=== PATIENT | male | born 1985 | race Caucasian/White ===

== ENCOUNTER 2016-09-05 14:03 | Emergency (ER) | payer OTHER ==
[2016-09-05 14:14] VITALS: BP 146/86
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
--- NOTE | 2016-09-06 09:26 | CR ---
EXAM DATE: 09/05/16 PATIENT'S AGE: 31 Patient: DC PADRON Facility: [place], [place] Site . Site : 1985 Study: XRay Hip Left [id number]/31/2017 4:58:47 PM Ordering Physician: Doctor Griffiths Final Report: INDICATION: hip pain, hx femoral head fx TECHNIQUE: Two views of the left hip. COMPARISON: None FINDINGS: Bones: Postsurgical changes along the left femoral neck and left acetabulum with no evidence of hardware complication. Degenerative changes of the left hip joint. No acute bony abnormality. . Soft tissues: Unremarkable. IMPRESSION: No acute bony abnormality or evidence of hardware complication. Dictated by Marco A Lee MD @ 09/05/2016 5:27:40 PM Dictated by: Marco A Lee MD @ 09/05/2016 17:44:31 (Electronic Signature) Report Signed by Proxy. MTDOralia
== END 2016-09-05 18:25 | disposition home or self-care (01) ==
LOC: MW.ED 14:03
DX: M25.552 Pain in left hip (principal); K21.9 Gastro-esophageal reflux disease without esophagitis; F17.210 Nicotine dependence, cigarettes, uncomplicated; Z88.6 Allergy status to analgesic agent; Z79.899 Other long term (current) drug therapy
CPT/HCPCS: 73502-26-LT; 73502-LT; 99282; 99283

== ENCOUNTER 2017-08-12 14:32 | Emergency (ER) | payer OTHER ==
--- NOTE | 2017-08-12 14:51 | EDM.PDOC ---
ED HPI GENERAL MEDICAL PROBLEM - General Chief Complaint: Lower Extremity Injury/Pain Stated Complaint: PAIN CALF Time Seen by Provider: 08/12/17 14:33 Source of Information: Reports: Patient History Limitations: Reports: No Limitations - History of Present Illness INITIAL COMMENTS - FREE TEXT/NARRATIVE: HISTORY AND PHYSICAL: History of present illness: Patient is a 32-year-old male who presents to the emergency room with left posterior calf pain which started axillary 2-3 days ago. He is concerned as last month he did have a hip replacement and his orthopedic provider wanted him to be evaluated for a blood clot. He denies any recent travel, HRT, or injury. Has not had any localized area of redness or swelling. Review of systems: As per history of present illness and below otherwise all systems reviewed and negative. Past medical history: As per history of present illness and as reviewed below otherwise noncontributory. Surgical history: As per history of present illness and as reviewed below otherwise noncontributory. Social history: No reported history of drug or alcohol abuse. Family history: As per history of present illness and as reviewed below otherwise noncontributory. Physical exam: General: Well-developed and well-nourished 32-year-old male. Alert and oriented. Nontoxic appearing and in no acute distress. HEENT: Atraumatic, normocephalic, pupils equal and reactive bilaterally, negative for conjunctival pallor or scleral icterus, mucous membranes moist, throat clear, neck supple, nontender, trachea midline. No drooling or trismus noted. No meningeal signs Lungs: Clear to auscultation, breath sounds equal bilaterally, chest nontender. Heart: S1S2, regular rate and rhythm without overt murmur Abdomen: Soft, nondistended, nontender. Negative for masses or hepatosplenomegaly. Negative for costovertebral tenderness. Pelvis: Stable nontender. Genitourinary: Deferred. Rectal: Deferred. Skin: Intact, warm, dry. No lesions or rashes noted. Extremities: Atraumatic, moves all extremities per self without difficulty or deficits, negative for cords or calf pain. Neurovascular unremarkable. Neuro: Awake, alert, oriented. Cranial nerves II through XII unremarkable. Cerebellum unremarkable. Motor and sensory unremarkable throughout. Exam nonfocal. Notes: The skin itself shows no evidence of localized swelling or erythema. He does not have any pain in the calf when he has flexion and dorsiflexion, negative Homans sign. Due to his concern I will do an ultrasound. He denies any injury or trauma therefore an x-ray is not needed at this time. Venous ultrasound shows no evidence of a DVT. This information was shared with the patient. Likely this is the musculature in nature. I did offer him some pain medication which she declines. He states he does have pain medicine available from his recent surgery. Supportive care measures were reviewed and discussed. He is agreeable to plan of care. Denies any further questions or concerns at this time. Diagnostics: Venous ultrasound Therapeutics: [] Impression: Left lower extremity pain Plan: 1. Rest, ice, elevate the affected extremity. After 24-48 hours you may apply gentle heat as needed. Gentle stretching. 2. Tylenol and/or ibuprofen as needed for pain management. Continue to use your walking cane for comfort purposes. 3. Follow-up with your primary care provider in the next 1-2 days. Return to the ED as needed and as discussed. Definitive disposition and diagnosis as appropriate pending reevaluation and review of above. Duration: Day(s): left calf Pain Score (Numeric/FACES): 5 - Related Data Allergies Allergy/AdvReac Type Severity Reaction Status Date / Time celecoxib [From Celebrex] Allergy Hives Verified 08/12/17 14:40 nickel Allergy Rash Verified 09/05/16 14:10 oxycodone [Oxycodone] Allergy Itching Verified 09/05/16 14:10 Home Meds: Home Meds Aspirin 325 mg PO ASDIRECTED PRN 08/12/17 [History] Ibuprofen [Advil] 200 mg PO ASDIRECTED PRN 08/12/17 [History] Past Medical History - Past Health History Medical/Surgical History: Denies Medical/Surgical History Other Respiratory History: states has smoked 1ppd x15 years Gastrointestinal History: Reports: GERD, Other (See Below) Other Gastrointestinal History: states has difficulty swalowing Musculoskeletal History: Reports: Fracture - Past Surgical History HEENT Surgical History: Reports: None Cardiovascular Surgical History: Reports: None Male Surgical History: Reports: None Endocrine Surgical History: Reports: None Neurological Surgical History: Reports: None Musculoskeletal Surgical History: Reports: Other (See Below) Dermatological Surgical History: Reports: None Social & Family History - Caffeine Use Caffeine Use: Reports: Energy Drinks Review of Systems - Review of Systems Review Of Systems: ROS reveals no pertinent complaints other than HPI. ED EXAM, GENERAL - Physical Exam Exam: See Below (See dictation) Course - Vital Signs Last Recorded V/S: Last Vital Signs Temp 97.7 F 08/12/17 14:41 Pulse 89 08/12/17 14:41 Resp 18 08/12/17 14:41 BP 136/92 H 08/12/17 14:41 Pulse Ox 98 08/12/17 14:41 - Orders/Labs/Meds Orders: Active Orders 24 hr Category Date Time Status Venous Doppler Lwr Ext Lt [US] Stat Exams 08/12/17 14:55 Taken Departure - Departure Time of Disposition: 16:09 Disposition: Home, Self-Care 01 Clinical Impression: Left leg pain - Discharge Information Instructions: Leg Cramps Referrals: PCP,None [Primary Care Provider] - Forms: ED Department Discharge Additional Instructions: The following information is given to patients seen in the emergency department who are being discharged to home. This information is to outline your options for follow-up care. We provide all patients seen in our emergency department with a follow-up referral. The need for follow-up, as well as the timing and circumstances, are variable depending upon the specifics of your emergency department visit. If you don't have a primary care physician on staff, we will provide you with a referral. We always advise you to contact your personal physician following an emergency department visit to inform them of the circumstance of the visit and for follow-up with them and/or the need for any referrals to a consulting specialist. The emergency department will also refer you to a specialist when appropriate. This referral assures that you have the opportunity for follow-up care with a specialist. All of these measure are taken in an effort to provide you with optimal care, which includes your follow-up. Under all circumstances we always encourage you to contact your private physician who remains a resource for coordinating your care. When calling for follow-up care, please make the office aware that this follow-up is from your recent emergency room visit. If for any reason you are refused follow-up, please contact the [facility] Emergency Department at and asked to speak to the emergency department charge nurse. [facility] [address] [place] [id number] 1. Rest, ice, elevate the affected extremity. After 24-48 hours you may apply gentle heat as needed. Gentle stretching. 2. Tylenol and/or ibuprofen as needed for pain management. Continue to use your walking cane for comfort purposes. 3. Follow-up with your primary care provider in the next 1-2 days. Return to the ED as needed and as discussed. - My Orders Last 24 Hours: My Active Orders 08/12/17 14:55 Venous Doppler Lwr Ext Lt [US] Stat - Assessment/Plan Last 24 Hours: My Active Orders 08/12/17 14:55 Venous Doppler Lwr Ext Lt [US] Stat
[2017-08-12 16:21] VITALS: BP 120/75
--- NOTE | 2017-08-14 19:15 | US ---
EXAM DATE: 08/12/17 PATIENT'S AGE: 32 Patient: DC PADRNO Facility: [place], [place] Site . Site : 1985 Study: US Extremity Venous [id number]/7/[id number] 3:39:39 PM Ordering Physician: Doctor Griffiths Final Report: INDICATION: Left calf pain TECHNIQUE: A compression venous ultrasound exam was performed of the left lower extremity using weeks-scale imaging, color Doppler and spectral Doppler analysis. FINDINGS: Sonographic imaging of the left lower extremity demonstrates normal compressibility and color Doppler venous blood flow within the common femoral vein, deep femoral vein, and the proximal greater saphenous vein. Within the thigh, the femoral vein is patent and compressible. At a lower level, the popliteal and posterior tibial veins also show normal compressibility and color Doppler venous blood flow. Limited imaging of the contralateral groin demonstrates a normal spectral waveform and color Doppler venous blood flow within the right common femoral vein. IMPRESSION: No evidence of deep vein thrombosis within the left lower extremity. Dictated by Nikole Quiroz MD @ Aug 12 2017 3:59PM (Electronic Signature) Report Signed by Proxy. ADRIANA
== END 2017-08-12 16:20 | disposition home or self-care (01) ==
LOC: MW.ED 14:32
DX: M79.605 Pain in left leg (principal); Z88.8 Allergy status to other drugs, medicaments and biological substances; Z88.5 Allergy status to narcotic agent; Z91.048 Other nonmedicinal substance allergy status
CPT/HCPCS: 93971-26-LT; 93971-LT; 99283; 99283-25

== ENCOUNTER 2022-09-09 10:03 | Day surgery (SDC) | payer OTHER ==
[~2022-09-09 10:03] MED LIST: Lactated Ringers 1,000 ML IV SCH
[2022-09-09] MEDS ORDERED: Propofol 200 MG/20 ML SDV ONE ×3 (10:53→11:32)
[2022-09-09] MEDS ORDERED: Lidocaine 2% 5 ML SDV ONE (10:53)
[2022-09-09] MEDS ORDERED: Lactated Ringers 1,000 ML IV SCH (12:00)
[2022-09-09 12:13] VITALS: BP 107/76; PULSE 66
== END 2022-09-09 12:15 | disposition home or self-care (01) ==
LOC: MW.SDS 10:03
PROVIDERS: ATTEND Surgery
DX: D12.5 Benign neoplasm of sigmoid colon (principal); K57.30 Diverticulosis of large intestine without perforation or abscess without bleeding; K62.1 Rectal polyp; K31.89 Other diseases of stomach and duodenum; K21.9 Gastro-esophageal reflux disease without esophagitis; K29.50 Unspecified chronic gastritis without bleeding; F17.210 Nicotine dependence, cigarettes, uncomplicated; M87.059 Idiopathic aseptic necrosis of unspecified femur; D64.9 Anemia, unspecified; F10.10 Alcohol abuse, uncomplicated; Z88.5 Allergy status to narcotic agent; Z91.048 Other nonmedicinal substance allergy status; Z88.6 Allergy status to analgesic agent; Z91.040 Latex allergy status; Z96.649 Presence of unspecified artificial hip joint
CPT/HCPCS: 45380; 45385; J2704; J7120; 00811; J3490